=== PATIENT | female | born 1960 ===

== ENCOUNTER 2019-05-09 13:22 | Day surgery (SDC) | payer OTHER ==
[~2019-05-09] VITALS: Ht 154.9 cm; Wt 85.5 kg
[~2019-05-09 13:22] MED LIST: ALBU90OI61 INH; AMLO5 PO; Aspir 8181 MG PO; Aspirin EC81 MG PO; BUDE6HFA INH; CALCIPOTRIENE-B60 GM; GLIM2 PO; LEVSOD88 PO; LISI20 PO; METF500 PO; MONT10T PO; NASACORT10.8 ML INH; Norvasc2.5 MG; SERT25; Synthroid88 MCG PO
== END 2019-05-09 16:55 | disposition home or self-care (01) ==
LOC: ORSCSDS 13:22
PROVIDERS: Internal Medicine Gastroenterology
PROC: 0DJD8ZZ Inspection of Lower Intestinal Tract, Via Natural or Artificial Opening Endoscopic (ICD-10-PCS; principal; 2019-05-09 15:00)
DX: Z12.11 Encounter for screening for malignant neoplasm of colon (principal); I10 Essential (primary) hypertension; G47.33 Obstructive sleep apnea (adult) (pediatric); E11.9 Type 2 diabetes mellitus without complications; J45.909 Unspecified asthma, uncomplicated; F41.8 Other specified anxiety disorders; K21.9 Gastro-esophageal reflux disease without esophagitis; E66.9 Obesity, unspecified; Z68.35 Body mass index [BMI] 35.0-35.9, adult; Z79.84 Long term (current) use of oral hypoglycemic drugs; Z79.899 Other long term (current) drug therapy
CPT/HCPCS: 82947; J2704; J7120

== ENCOUNTER → 2024-05-07 | Outpatient (CLI) | payer OTHER | END | disposition home or self-care (01) | LOC: LAB SHORT 07:42 | DX: R93.89 Abnormal findings on diagnostic imaging of other specified body structures (principal) | CPT/HCPCS: 88305 ==

== ENCOUNTER → 2025-06-08 | Outpatient (CLI) | payer OTHER ==
[2025-06-08 20:03] LABS: Creatinine, Urine Random 81.9 mg/dL (27.00-270.00); Microalb/Creat Ratio UR, Rand 7.79 mg/g (0.000-30.000); Microalbumin, Random Urine 6.38 mg/L (0.000-20.000)
== END | disposition home or self-care (01) ==
LOC: LAB SHORT 18:40 → LAB 18:40
PROVIDERS: Internal Medicine
DX: E11.69 Type 2 diabetes mellitus with other specified complication (principal)
CPT/HCPCS: 82043; 82570

== ENCOUNTER 2025-09-16 18:49 | Inpatient (IN) | payer OTHER ==
[~2025-09-16] VITALS: Ht 152.4 cm; Wt 76.7 kg
[~2025-09-16 18:49] MED LIST changes: +EUTHYROX125 MCG PO
[2025-09-16 19:43] LABS: BASOPHILS ABSOLUTE AUTO 0.06 K/mm3 (0.00-0.23); BASOPHILS PERCENT AUTO 1 % (0-2); EOSINOPHILS ABSOLUTE AUTO 0.12 K/mm3 (0.00-0.68); EOSINOPHILS PERCENT AUTO 2 % (0-6); Hematocrit 47.5 % (33.0-51.0); Hemoglobin 16.9 g/dL (11.5-16.0); IMMATURE GRAN ABSOLUTE AUTO 0.02 K/mm3 (0.00-0.10); IMMATURE GRAN PERCENT AUTO 0 % (0-1); LYMPHOCYTES ABSOLUTE AUTO 1.98 K/mm3 (0.84-5.20); LYMPHOCYTES PERCENT AUTO 26 % (21-46); MONOCYTES ABSOLUTE AUTO 0.46 K/mm3 (0.16-1.47); MONOCYTES PERCENT AUTO 6 % (4-13); Mean Corpuscular HGB Conc 35.6 g/dL (31.5-36.5); Mean Corpuscular Volume 85 fL (80-100); NEUTROPHILS ABSOLUTE AUTO 5.09 K/mm3 (1.96-9.15); NEUTROPHILS PERCENT AUTO 66 % (41-73); NRBC ABSOLUTE 0.00 K/mm3 (0.00-0.02); NRBC Auto 0.0 /100 WBC (0.0-0.2); Platelet Count 273 K/mm3 (150-400); RDW Coefficient Variation 12.4 % (11.7-14.2); RDW Standard Deviation 38.4 fL (35.1-46.3)
[2025-09-16 20:01] LABS: Alanine Aminotransfer (ALT/SGP 45.0 U/L (12-78); Albumin, Blood 4.4 g/dL (3.4-5.0); Albumin/Globulin Ratio 1.3 (0.8-1.8); Anion Gap 7.0 mmol/L (3-11); Aspartate Aminotrans (AST/SGOT 25.0 U/L (12-37); Bilirubin, Total 0.7 mg/dL (0.1-1.0); Blood Urea Nitrogen 17.0 mg/dL (8-24); CO2, Blood 29.0 mmol/L (21-32); Calcium, Blood 9.3 mg/dL (8.5-10.1); Chloride, Blood 104.0 mmol/L (98-108); Creatinine, Blood 0.87 mg/dL (0.40-1.00); Globulin, Blood 3.3 g/dL (2.2-4.0); Glucose, Blood 112.0 mg/dL (70-99); Potassium, Blood 4.0 mmol/L (3.5-5.5); Sodium, Blood 136.0 mmol/L (136-145); Total Protein, Blood 7.7 g/dL (6.4-8.2)
[2025-09-16] MEDS ORDERED: Heparin Sodium 5000 Units/ML 1ML MDV IV ONE ×2 (22:00→22:40)
[2025-09-16] MEDS ORDERED: Dose Adjust by Pharmacy XX STA (22:36)
[2025-09-16] MEDS ORDERED: Heparin Sodium,Porcine/0.5 NS 500 ML IV SCH (22:40)
[2025-09-16 22:48] LABS: Anti-Xa UFH, PHA Monitoring <0.10 IU/mL; Prothrombin Time Results 11.9 Sec (9.7-11.5)
[2025-09-16 23:33] VITALS: BP 135/81
[2025-09-16] MEDS ORDERED: Ondansetron HCl 2 MG / ML 2ML Vial IV PRN (23:45)
[2025-09-16] MEDS ORDERED: FLU VACC TS2025-26(6MOS UP)/PF 45 MCG/0.5 ML SYRINGE IM SCH (23:45)
[2025-09-16] MEDS ORDERED: NS 1,000 ML IV SCH (23:45)
[2025-09-16] MEDS ORDERED: AMLO10 PO (23:56)
[2025-09-16] MEDS ORDERED: RYBELSUS3 MG PO ×2 (23:58)
[2025-09-17] MEDS ORDERED: OMEP20ER PO (00:01)
[2025-09-17] MEDS ORDERED: LISI5 PO (00:01)
[2025-09-17] MEDS ORDERED: KLOR-CON 1010 ME9 PO (00:01)
[2025-09-17] MEDS ORDERED: SERT50 PO (00:02)
[2025-09-17] MEDS ORDERED: LOSA50 PO (00:03)
[2025-09-17] MEDS ORDERED: ALDACTONE25 MG PO (00:03)
[2025-09-17] MEDS ORDERED: EZET10 PO (00:04)
[2025-09-17] MEDS ORDERED: Mag Hydrox/Al Hydrox/Simeth 18 ML,Lidocaine 2% Viscous Soln 9 ML,Atropine/Scopalam/Hyos... PO PRN (00:40)
--- NOTE | 2025-09-17 00:59 | NUR ---
ARRIVAL TO UNIT REPORT RECEIVED FROM GARRET WARD. PT ARRIVES TO PCU AT APPROX 2309 VIA [facility]. TRANSFERRED SELF FROM [facility] TO HOSPITAL BED. SHE IS ALERT AND ORIENTED. ON RA. ALL VSS. SHE DENIES CHEST PAIN/PRESSURE/TIGHTNESS. SHE IS ACCOMPANIED BY HER AND DAUGHTER. HISTORY INCLUDES DIABETES, HYPERTENSION, AND SEASONAL ASTHMA. INDEPENDENT IN ALL ADL'S. SHE USES A CPAP AT NIGHT AT BASELINE. SHE IS NPO AT THIS TIME.
[2025-09-17 03:25] VITALS: BP 152/71
--- NOTE | 2025-09-17 05:35 | NUR ---
SHIFT SUMMARY PT REMAINED A/O, ON RA, VSS. PT WORE CPAP WHILE SLEEPING. REMAINED AT BEDSIDE. ROUNDED ON PT AT APPROX 0500. NO ACUTE CHANGES OVERNIGHT.
[2025-09-17 05:39] LABS: BASOPHILS ABSOLUTE AUTO 0.05 K/mm3 (0.00-0.23); BASOPHILS PERCENT AUTO 1 % (0-2); EOSINOPHILS ABSOLUTE AUTO 0.17 K/mm3 (0.00-0.68); EOSINOPHILS PERCENT AUTO 2 % (0-6); Hematocrit 43.3 % (33.0-51.0); Hemoglobin 15.1 g/dL (11.5-16.0); IMMATURE GRAN ABSOLUTE AUTO 0.01 K/mm3 (0.00-0.10); IMMATURE GRAN PERCENT AUTO 0 % (0-1); LYMPHOCYTES ABSOLUTE AUTO 2.55 K/mm3 (0.84-5.20); LYMPHOCYTES PERCENT AUTO 37 % (21-46); MONOCYTES ABSOLUTE AUTO 0.40 K/mm3 (0.16-1.47); MONOCYTES PERCENT AUTO 6 % (4-13); Mean Corpuscular HGB Conc 34.9 g/dL (31.5-36.5); Mean Corpuscular Volume 87 fL (80-100); NEUTROPHILS ABSOLUTE AUTO 3.79 K/mm3 (1.96-9.15); NEUTROPHILS PERCENT AUTO 55 % (41-73); NRBC ABSOLUTE 0.00 K/mm3 (0.00-0.02); NRBC Auto 0.0 /100 WBC (0.0-0.2); Platelet Count 191 K/mm3 (150-400); RDW Coefficient Variation 12.5 % (11.7-14.2); RDW Standard Deviation 39.2 fL (35.1-46.3)
[2025-09-17] MEDS ORDERED: Clarify Drug Order XX ONE (06:15)
[2025-09-17 06:32] LABS: Alanine Aminotransfer (ALT/SGP 40.0 U/L (12-78); Albumin, Blood 3.8 g/dL (3.4-5.0); Albumin/Globulin Ratio 1.4 (0.8-1.8); Anion Gap 11.0 mmol/L (3-11); Aspartate Aminotrans (AST/SGOT 19.0 U/L (12-37); Bilirubin, Total 0.6 mg/dL (0.1-1.0); Blood Urea Nitrogen 19.0 mg/dL (8-24); CO2, Blood 24.0 mmol/L (21-32); Calcium, Blood 9.0 mg/dL (8.5-10.1); Chloride, Blood 106.0 mmol/L (98-108); Creatinine, Blood 0.78 mg/dL (0.40-1.00); Globulin, Blood 2.8 g/dL (2.2-4.0); Glucose, Blood 116.0 mg/dL (70-99); Potassium, Blood 3.5 mmol/L (3.5-5.5); Sodium, Blood 137.0 mmol/L (136-145); Total Protein, Blood 6.6 g/dL (6.4-8.2)
[2025-09-17] MEDS ORDERED: Albuterol HFA200 ACT/6.7 GM INH INH PRN (06:45)
[2025-09-17] MEDS ORDERED: Formoterol/Mometasone MDI 5/200 mcg 13 GM INH SCH (06:45)
[2025-09-17] MEDS ORDERED: Insulin Human Lispro 100 Units/ML 3ML Syringe SC SCH (07:30)
--- NOTE | 2025-09-17 07:37 | NUR ---
UPDATE: MD THORNTON AT BEDSIDE, PLAN FOR ANGIO LATER TODAY, PROVIDER GAVE VERBAL ORDER TO HOLD PLAVIX, PROCEDURE AND BLOOD CONSENT OBTAINED, HEPARIN GTT RUNNING PER EMAR, PT NPO FOR PROCEDURE, DENIES CHEST PAIN, PRESSURE, N/V/D AT THIS TIME. MD GRULLON AT BEDSIDE, PT ENDORSES UNDERSTANDING OF PLAN AND EXPRESSES DESIRE TO DISCHARGE AFER ANGIO. DAUGHTER AND AT BEDSIDE, BOTH MD'S ANSWERED ALL QUESTIONS FROM PT AND FAMILY RE: CARE PLAN AND TX.
[2025-09-17 08:41] VITALS: BP 130/75
--- NOTE | 2025-09-17 11:16 | NUR ---
Chest tightness & pressure Pt reporting 2/10 "tight pressure" in her chest after ambulating to the bathroom. VSS. No changes seen on telemetry. EKG done & sent to salesperson new cars. Pt reporting discomfort went away within 2 minutes when laying down, then briefly returned again shortly afer & went away. Pt denying chest pain or discomfort at this time. aware. Pt continues to be NPO w/ heparin gtt infusing, awaiting angiogram today.
[2025-09-17 11:33] VITALS: BP 125/69
[2025-09-17] MEDS ORDERED: NS 1,000 ML IV ONE ×2 (12:39→12:59)
[2025-09-17] MEDS ORDERED: Nitroglycerin 2 MG/20 ML BTL ONE (12:39)
[2025-09-17] MEDS ORDERED: Verapamil HCL 2.5 MG/ML 2ML Injection ONE (12:39)
[2025-09-17] MEDS ORDERED: Heparin Sodium 1000 Units/ML 10ML MDV ONE ×2 (12:39→14:15)
[2025-09-17] MEDS ORDERED: NS 250 ML IV ONE (12:39)
--- NOTE | 2025-09-17 12:51 | NUR ---
PT TO PATROL COMMUNITY SERVICE OFFICER: PT LEFT PCU AT APPROX 1250 IN WC FOR PATROL COMMUNITY SERVICE OFFICER, HEP GTT PAUSED, SCRAP HOIST OPERATOR AND PHARMACY NOTIFIED.
[2025-09-17] MEDS ORDERED: FentaNYL Citrate 50 MCG/ML 2 ML Injection ONE (12:58)
[2025-09-17] MEDS ORDERED: Midazolam HCl 1MG / ML 2ML Vial ONE (12:59)
--- NOTE | 2025-09-17 13:00 | NUR ---
PALLIATIVE CARE CONSULT RECEIVED FOR AD/POLST, PER PATIENT REQUEST. SHE ALSO REQUESTS BE PRESENT FOR ADVANCED CARE PLANNING. NO CURRENT POLST OR ADVANCE DIRECTIVE ON FILE.
--- NOTE | 2025-09-17 14:13 | NUR ---
rounded on patient to discuss advanced care planning. patient was in a procedure during my rounds
[2025-09-17] MEDS ORDERED: NS 500 ML IV ONE (15:05)
[2025-09-17 15:15] VITALS: BP 128/71
--- NOTE | 2025-09-17 15:25 | NUR ---
RETURN FROM STAMPING PRESS OPERATOR: PT RETURNED TO ROOM FROM STAMPING PRESS OPERATOR AT APPROX 1500, TR BAND AND ARM IMMOBILIZER IN PLACE ON RIGHT RADIAL ACCESS, ADDED 1ML FOR OOZING FROM SITE, PT DENIES ANY NEEDS AT THIS TIME.
--- NOTE | 2025-09-17 16:10 | NUR ---
CONTACTED MD LAU: PT ENDORSED FEELING OF ACID REFLUX, NEW ORDER FOR MAALOX RECIEVED.
--- NOTE | 2025-09-17 19:37 | NUR ---
Pt reporting 11/24 "burning pressure" across her chest. MD Hernandez notified. VSS. w/ order for one time PO dose of famotidine now.
--- NOTE | 2025-09-17 19:43 | NUR ---
SHIFT SUMMARY: PT HAD 2 STENTS PLACED IN PREPRINT ANALYST TODAY, RIGHT RADIAL ACCESS, TR BAND BEING RECOVERED, SITE WAS OOZY ON ARRIVAL, ADDED 1 ML AIR, STARTED REMOVING AIR AFTER APPROX 2 HOURS, 2MLS REMOVED AND SITE REBLEED, TR BAND REINFLATED AND BLEEDING STOPPED. PT ENDORSED 2 EPISODES OF CHEST BURNING ACROSS NIPPLE LINE, MD CUNNINGHAM NOTIFIED AT EACH INSTANCE AND NEW ORDERS RECEIVED. A/O X4, PLEASANT AND COOPERATIVE WITH CARE, ABLE TO COMMUNICATE NEEDS. NSR, HR 70'S. SPO2 >92% ON RA, DENIES SOB. SBA TO BATHROOM FOR CORD MANAGEMENT. AND DAUGHTER TO BEDSIDE MOST OF THE DAY. ORIENTED TO CALL LIGHT, PT VERBALIZES NO FURTHER NEEDS AT THIS TIME.
[2025-09-17 19:52] VITALS: BP 142/83
[2025-09-17 23:39] VITALS: BP 135/70
[2025-09-18 04:50] LABS: BASOPHILS ABSOLUTE AUTO 0.05 K/mm3 (0.00-0.23); BASOPHILS PERCENT AUTO 1 % (0-2); EOSINOPHILS ABSOLUTE AUTO 0.10 K/mm3 (0.00-0.68); EOSINOPHILS PERCENT AUTO 1 % (0-6); Hematocrit 43.7 % (33.0-51.0); Hemoglobin 15.2 g/dL (11.5-16.0); IMMATURE GRAN ABSOLUTE AUTO 0.01 K/mm3 (0.00-0.10); IMMATURE GRAN PERCENT AUTO 0 % (0-1); LYMPHOCYTES ABSOLUTE AUTO 1.52 K/mm3 (0.84-5.20); LYMPHOCYTES PERCENT AUTO 21 % (21-46); MONOCYTES ABSOLUTE AUTO 0.47 K/mm3 (0.16-1.47); MONOCYTES PERCENT AUTO 7 % (4-13); Mean Corpuscular HGB Conc 34.8 g/dL (31.5-36.5); Mean Corpuscular Volume 85 fL (80-100); NEUTROPHILS ABSOLUTE AUTO 5.03 K/mm3 (1.96-9.15); NEUTROPHILS PERCENT AUTO 70 % (41-73); NRBC ABSOLUTE 0.00 K/mm3 (0.00-0.02); NRBC Auto 0.0 /100 WBC (0.0-0.2); Platelet Count 206 K/mm3 (150-400); RDW Coefficient Variation 12.5 % (11.7-14.2); RDW Standard Deviation 38.7 fL (35.1-46.3)
[2025-09-18 05:07] LABS: Alanine Aminotransfer (ALT/SGP 38.0 U/L (12-78); Albumin, Blood 3.9 g/dL (3.4-5.0); Albumin/Globulin Ratio 1.4 (0.8-1.8); Anion Gap 9.0 mmol/L (3-11); Aspartate Aminotrans (AST/SGOT 21.0 U/L (12-37); Bilirubin, Total 0.6 mg/dL (0.1-1.0); Blood Urea Nitrogen 13.0 mg/dL (8-24); CO2, Blood 25.0 mmol/L (21-32); Calcium, Blood 8.8 mg/dL (8.5-10.1); Chloride, Blood 107.0 mmol/L (98-108); Creatinine, Blood 0.74 mg/dL (0.40-1.00); Globulin, Blood 2.8 g/dL (2.2-4.0); Glucose, Blood 137.0 mg/dL (70-99); Potassium, Blood 4.0 mmol/L (3.5-5.5); Sodium, Blood 137.0 mmol/L (136-145); Total Protein, Blood 6.7 g/dL (6.4-8.2)
--- NOTE | 2025-09-18 06:50 | NUR ---
SHIFT SUMMARY: PT A&OX4 CALM AND COOPERATIVE. ABLE TO MAKE NEEDS KNOWN AND CALLS APPROPRIATELY. VSS ON RA. TR BAND DEFLATED AND REMOVED. DRESSED SITE WITH CHG DRESSING AND ARM BOARD IN PLACE. SITE HAS NO ACTIVE BLEEDING AND NO HEMATOMA PRESENT. PT C/O CHEST BURNING AT START OF SHIFT WHILE RECEIVING HANDOFF. DAY SHIFT NURSE COMMUNICATED WITH MD. SEE PREVIOUS NOTE. PT C/O SAME PAIN AND EKG COMPLETED. MEDICATED WITH MAALOX AND PT REPORTED RELIEF. NO OTHER CHEST BURNING EVENTS THROUGH THE NIGHT AFTER MEDICATING. PT INDEPENDENT IN ROOM. AT BEDSIDE PARTICIPATING IN CARE. BED IS LOW AND LOCKED. CALL LIGHT WITHIN REACH. CONTINUE WITH CURRENT PLAN OF CARE.
--- NOTE | 2025-09-18 07:51 | NUR ---
MD THORNTON TO BEDSIDE: DISCHARGE PLANNING, MEDICATION EDUCATION: PLAVIX, ASA, ATORVASTATIN WITH WEEKLY DOSING, BLOOD PRESSURE MEDICATIONS, ACTIVITY RESTRICTIONS: ARM IMMOBILIZER ON FOR 1-2 DAYS, WAIT 4 DAYS BEFORE RESUMING WATER ACTIVITY AT THE [facility], FOLLOW UP WITH CARDIOLOGY WITHIN 1 MONTH.
[2025-09-18 07:54] VITALS: BP 144/81
--- NOTE | 2025-09-18 10:16 | NUR ---
"Spiritual Care | Family Request Spouse saw this bag machine operator helper in the hallway and invited me to visit the Pt. Family is known to this bag machine operator helper from the community. Pt. is pleasant and welcomes my visit. Facilitated an review of the Pts. health journey. Listen with interest and empathy. Pt. displays evidence of being alert and responsive. Pryaed with the Pt. Both Pt. and sposue verbalize gratitude for the spiritual care visit."
[2025-09-18] MEDS ORDERED: ASPI81CH PO (10:51)
[2025-09-18] MEDS ORDERED: ATOR10 PO (10:52)
[2025-09-18] MEDS ORDERED: CLOP75 PO (10:53)
[2025-09-18] MEDS ORDERED: PANT40 PO (10:53)
[2025-09-18 11:55] VITALS: BP 136/77
--- NOTE | 2025-09-18 12:39 | NUR ---
DISCHARGE: 2 STENTS PLACED ON 09/17, RIGHT RADIAL ACCESS, SITE IS COVERED WITH CLEAR ADHESIVE DRESSING, WRIST IMMOBILIZER IN PLACE, PT EDUCATED ON MOBILITY RESTRICTIONS, NEW MEDICATIONS, DC'D MEDICATION, AND FOLLOW UP APPTS, PT VERBALIZED UNDERSTANDING, VERBALIZED UNDERSTANDING. A/O X4, PLEASANT AND COOPERATIVE WITH CARE, ABLE TO COMMUNICATE NEEDS, USES CALL LIGHT APPROPRIATELY. NSR, HR 70'S, PT DENIES CHEST PAIN OR PRESSURE, DENIES BURNING SENSATION PREVIOUSLY FELT. PT LEFT THE UNIT AT APPROX 1230 IN WC WITH ALL BELONGINGS AND WITHOUT INCIDENT.
== END 2025-09-18 12:30 | disposition home or self-care (01) | DRG 322 ==
LOC: ER 18:49 → PCU 18:50
PROVIDERS: Student in an Organized Health Care Education/Training Program; ADMIT Internal Medicine
PROC: 027034Z Dilation of Coronary Artery, One Artery with Drug-eluting Intraluminal Device, Percutaneous Approach (ICD-10-PCS; principal; 2025-09-17)
PROC: B2111ZZ Fluoroscopy of Multiple Coronary Arteries using Low Osmolar Contrast (ICD-10-PCS; 2025-09-17)
PROC: 4A023N7 Measurement of Cardiac Sampling and Pressure, Left Heart, Percutaneous Approach (ICD-10-PCS; 2025-09-17)
PROC: B24BZZZ Ultrasonography of Heart with Aorta (ICD-10-PCS; 2025-09-17)
DX: I21.4 Non-ST elevation (NSTEMI) myocardial infarction (principal); I10 Essential (primary) hypertension; E78.5 Hyperlipidemia, unspecified; E03.9 Hypothyroidism, unspecified; K21.9 Gastro-esophageal reflux disease without esophagitis; I25.10 Atherosclerotic heart disease of native coronary artery without angina pectoris; E11.9 Type 2 diabetes mellitus without complications; Z88.8 Allergy status to other drugs, medicaments and biological substances; Z91.018 Allergy to other foods; Z88.1 Allergy status to other antibiotic agents; Z79.899 Other long term (current) drug therapy; Z79.890 Hormone replacement therapy
CPT/HCPCS: 36415; 71046; 76937; 80053; 82947; 83690; 83880; 84484; 85025; 85347; 85520; 85610; 85730; 93005; 93010; 93306; 93458; 93571; 94640; 94660; 94664; 94762; 96374; 96376; 99152; 99153; 99285-25; A9270; C1725; C1769; C1874; C1887; C1894; C9600; G0378; J1644; J2250; J3010; J7030; J7040; J7050; Q9967